=== PATIENT | male | born 1965 | race Caucasian/White ===

== ENCOUNTER 2016-09-09 08:42 | Day surgery (SDC) | payer BC ==
[2016-09-06 10:21] VITALS: BMI 27.5
[~2016-09-09 08:42] MED LIST: DEXAMETHASONE SOD PHOSPHATE 10 MG/ML 1 ML VIAL IV ONE; HEPARIN SODIUM,PORCINE 5,000 UNIT/ML 1 ML VIAL SQ ONE; HYDROmorphone 1 MG/ML 1 ML SYRINGE IVP PRN; LACTATED RINGERS 1,000 ML IV SCH; MIDAZOLAM 2 MG/2 ML VIAL IV PRN; ONDANSETRON 4 MG/2 ML VIAL IVP ONE; SCOPOLAMINE 1.5MG/72HR PATCH TRANSDERM ONE
[2016-09-09] MEDS ORDERED: LIDOCAINE 1% 20 ML VIAL (10MG/ML) FOR IV START INTRADERMA ONE (09:25)
[2016-09-09] MEDS ORDERED: BUPIVACAIN-EPI 0.5%-1:200,000 30 ML VIAL SQ ONE (10:40)
--- NOTE | 2016-09-09 10:42 | P.GSHP ---
History of Present Illness H&P Date: 09/09/16 Chief Complaint: Left arm skin lesion This a 51-year-old male who presents today for excision of a left arm skin lesion. Patient has a scaly nonhealing left forearm skin lesion. Lesions of present for several years. Past Medical History Past Medical History: No Reported History History of Any Multi-Drug Resistant Organisms: None Reported Past Surgical History: No Surgical Hx Reported Past Anesthesia/Blood Transfusion Reactions: No Reported Reaction Smoking Status: Current every day smoker - Past Family History Mother Family Medical History: No Reported History Medications and Allergies Home Medications Medication Instructions Recorded Confirmed Type No Known Home Medications [No 09/06/16 09/09/16 History Known Home Medications] Allergies Allergy/AdvReac Type Severity Reaction Status Date / Time No Known Allergies Allergy Verified 09/09/16 09:03 Surgical - Exam Vital Signs Temp Pulse Resp BP Pulse Ox 98.8 F 53 L 16 119/78 97 09/09/16 08:59 09/09/16 08:59 09/09/16 08:59 09/09/16 08:59 09/09/16 08:59 - General well developed, no distress - Eyes PERRL - Neck no masses - Respiratory normal expansion - Cardiovascular Rhythm: regular - Abdomen Abdomen: soft, non tender - Integumentary 8 cm scaly mildly erythematous skin lesion left forearm. Assessment and Plan Plan: Left forearm skin lesion. We'll perform excisional biopsy.
[2016-09-09] MEDS ORDERED: fentaNYL (PF) 50 MCG/ML 2 ML AMP ONE (10:59)
[2016-09-09] MEDS ORDERED: PROPOFOL 10 MG/ML 20 ML VIAL IV ONE (10:59)
[2016-09-09] MEDS ORDERED: MIDAZOLAM 2 MG/2 ML VIAL ONE (10:59)
[2016-09-09] MEDS ORDERED: LIDOCAINE 1% INJ 10MG/ML (20 ML MDV) ONE (10:59)
[2016-09-09] MEDS ORDERED: LACTATED RINGERS 1,000 ML IV ONE (11:34)
--- NOTE | 2016-09-09 11:38 | P.OP ---
Date of Procedure: 09/09/16 Preoperative Diagnosis: Left arm skin lesion Postoperative Diagnosis: Defer to pathology Procedure(s) Performed: Excision of left arm skin lesion Implants: Anesthesia: MAC Surgeon: Cosmo Heller Pathology: other (Left arm skin lesion) Condition: stable Disposition: PACU Indications for Procedure: Operative Findings: Description of Procedure: The patient's placed on the operating table in the supine position. He received general anesthesia. His left arm was prepped and draped usual fashion. Patient had a large left forearm skin lesion. An elliptical skin incision was made around the lesion. Lesion measuring probably 10 x 3 cm. Using left cautery and sharp dissection the patient was taken down level of the subcutaneous tissues. The Bovie was used to dissect through the subcutaneous tissues. The specimens of pathology. A suture was position on the specimen and this was tagged at the medial aspect of the lesion. The deep layer was then closed with 2-0 Vicryl suture. Skin closed interrupted 3-0 Monocryl suture. Dermabond was applied. Patient was sent to recovery in stable condition.
[2016-09-09 11:50] VITALS: TEMP 07
[2016-09-09 12:35] VITALS: PULSE 50; RESP 18
[2016-09-09 12:52] VITALS: BP 116/80
== END 2016-09-09 13:02 | disposition home or self-care (01) ==
LOC: OR 08:42
PROVIDERS: ATTEND Surgery
DX: L57.0 Actinic keratosis (principal); L57.8 Other skin changes due to chronic exposure to nonionizing radiation; F17.200 Nicotine dependence, unspecified, uncomplicated
CPT/HCPCS: 88305; 11406; 12034; J2250; J1644; J2405; J2001; J3010; J2704

== ENCOUNTER 2016-12-21 19:20 | Emergency (ER) | payer BC ==
[2016-12-21 19:30] VITALS: BP 193/85; PULSE 88; RESP 20; TEMP 98.2
--- NOTE | 2016-12-21 19:58 | ED ---
ENT HPI - General Chief complaint: Dental/Oral Stated complaint: dental pain Time Seen by Provider: 12/21/16 19:33 Source: patient Mode of arrival: ambulatory Limitations: no limitations - History of Present Illness Initial comments: 51-year-old male presents with left upper dental pain for the last few days. Patient states he's had a broken tooth there for quite a while but it never bothered him. Patient states that he felt hot and cold. Patient states he can' t bite down on it hurts too much. He denies any fevers but does state he feel swollen. No nausea no vomiting. Patient is staying up with the dentist later in the week. Denies any upper respiratory symptoms no headaches no drainage no sore throat. MD complaint: tooth pain Associated Symptoms: toothache (#1) - Related Data Previous Rx's Medication Instructions Recorded Acetaminophen-Codeine 300-30mg 1 tab PO Q6H PRN #20 tablet 12/21/16 [Tylenol #3] Penicillin V Potassium [Pen Vee K] 500 mg PO QID #28 tablet 12/21/16 Allergies Allergy/AdvReac Type Severity Reaction Status Date / Time No Known Allergies Allergy Verified 12/21/16 19:30 Review of Systems ROS Statement: Those systems with pertinent positive or pertinent negative responses have been documented in the HPI. ROS Other: All systems not noted in ROS Statement are negative. ENT: Reports: dental pain. Denies: ear pain, throat pain Respiratory: Denies: cough Cardiovascular: Denies: chest pain Endocrine: Denies: fatigue Gastrointestinal: Denies: nausea, vomiting Past Medical History Past Medical History: No Reported History History of Any Multi-Drug Resistant Organisms: None Reported Past Surgical History: No Surgical Hx Reported Past Anesthesia/Blood Transfusion Reactions: No Reported Reaction Past Psychological History: No Psychological Hx Reported Smoking Status: Current every day smoker Past Alcohol Use History: None Reported Past Drug Use History: None Reported - Past Family History Mother Family Medical History: No Reported History General Exam Limitations: no limitations General appearance: alert, in no apparent distress Head exam: Present: atraumatic, normocephalic, normal inspection Eye exam: Present: normal appearance, PERRL, EOMI. Absent: scleral icterus, conjunctival injection, periorbital swelling Pupils: Present: normal accommodation ENT exam: Present: normal exam, mucous membranes moist Expanded Teeth exam: Present: fractured tooth # (1), dental tenderness # (1) Neck exam: Present: normal inspection. Absent: tenderness, meningismus, lymphadenopathy Respiratory exam: Present: normal lung sounds bilaterally. Absent: respiratory distress, wheezes, rales, rhonchi, stridor Cardiovascular Exam: Present: regular rate, normal rhythm, normal heart sounds. Absent: systolic murmur, diastolic murmur, rubs, gallop, clicks Course Vital Signs 12/21/16 19:28 Temperature 98.2 F Pulse Rate 88 Respiratory 20 Rate Blood Pressure 193/85 O2 Sat by Pulse 98 Oximetry Medical Decision Making - Medical Decision Making Discussed with patient we'll place an antibiotic and medication for pain until seen his dental specialist. Patient will probably need tooth extracted or root canal on the near future. Patient on aware and understands plan and care. Disposition Clinical Impression: Fracture of tooth, Toothache Disposition: HOME SELF-CARE Instructions: Dental Caries (ED), Toothache (ED) Prescriptions: Acetaminophen-Codeine 300-30mg [Tylenol #3] 1 tab PO Q6H PRN #20 tablet PRN Reason: Pain Penicillin V Potassium [Pen Vee K] 500 mg PO QID #28 tablet Referrals: Rika Guerrero MD [Primary Care Provider] - 1-2 days Doug Leonard DDS [STAFF PHYSICIAN] - 1-2 days Time of Disposition: 19:58
== END 2016-12-21 20:19 | disposition home or self-care (01) ==
LOC: EC 19:20
DX: S02.5XXA Fracture of tooth (traumatic), initial encounter for closed fracture (principal); F17.200 Nicotine dependence, unspecified, uncomplicated
CPT/HCPCS: 99282

== ENCOUNTER → 2019-02-22 | Outpatient (CLI) | payer OTHER ==
--- NOTE | 2019-02-22 12:45 | ECHOF ---
Referral Reason:[id number] dizziness MEASUREMENTS -------- HEIGHT: 182.9 cm WEIGHT: 93.4 kg BP: RVIDd: 3.2 cm (< 3.3) IVSd: 1.0 cm (0.6 - 1.1) LVIDd: 4.2 cm (3.9 - 5.3) LVPWd: 1.2 cm (0.6 - 1.1) IVSs: 1.5 cm LVIDs: 1.9 cm LVPWs: 1.6 cm LAESV Index (A-L): 16.27 ml/m Ao Diam: 4.4 cm (2.0 - 3.7) AV Cusp: 2.5 cm (1.5 - 2.6) LA Diam: 3.3 cm (2.7 - 3.8) MV EXCURSION: 15.965 mm (> 18.000) MV EF SLOPE: 44 mm/s (70 - 150) EPSS: 0.3 cm MV E Xavier: 0.52 m/s MV DecT: 208 ms MV A Xavier: 0.68 m/s MV E/A Ratio: 0.76 RAP: 5.00 mmHg RVSP: 26.67 mmHg TAPSE: 21.17 mm FINDINGS -------- Sinus rhythm with extra systolic beats. This was a technically adequate study. The left ventricular size is normal. There is borderline concentric left ventricular hypertrophy. Overall left ventricular systolic function is normal with, an EF between 55 - 60 %. The diastolic filling pattern is normal for the age of the patient 9.99. The right ventricle is normal in size. The right ventricular systolic function is normal. Normal LA size by volume 22+/-6 ml/m2. The right atrial size is normal. The aortic valve is trileaflet, and appears structurally normal. No aortic stenosis or regurgitation. The mitral valve is normal. Mild mitral regurgitation is present. There is mild mitral valve prol apse. The tricuspid valve appears structurally normal. Mild tricuspid regurgitation present. Right vent ricular systolic pressure is normal at < 35 mmHg. There is no pulmonic regurgitation present. 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 Normal inferior vena cava with normal inspiratory collapse consistent with estimated right atrial pre ssure of 5 mmHg. There is no pericardial effusion. CONCLUSIONS -------- 1. Sinus rhythm with extra systolic beats. 2. This was a technically adequate study. 3. The left ventricular size is normal. 4. There is borderline concentric left ventricular hypertrophy. 5. Overall left ventricular systolic function is normal with, an EF between 55 - 60 %. 6. The diastolic filling pattern is normal for the age of the patient 9.99 7. The right ventricle is normal in size. 8. The right ventricular systolic function is normal. 9. Normal LA size by volume 22+/-6 ml/m2. 10. The aortic valve is trileaflet, and appears structurally normal. No aortic stenosis or regurgitat ion. 11. The mitral valve is normal. 12. Mild mitral regurgitation is present. 13. There is mild mitral valve prolapse. 14. The tricuspid valve appears structurally normal. 15. Mild tricuspid regurgitation present. 16. There is no pulmonic regurgitation present. 17. 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 Normal inferior vena cava with normal inspiratory collapse consistent with estimated right atrial pressure of 5 mmHg. 19. There is no pericardial effusion. HOME CARE ATTENDANT: Yu Carlton RDCS
== END | disposition home or self-care (01) ==
LOC: RADECHMAIN 11:12
PROVIDERS: ATTEND Family Medicine
DX: I08.1 Rheumatic disorders of both mitral and tricuspid valves (principal)
CPT/HCPCS: 93306

== ENCOUNTER → 2019-03-23 | Outpatient (CLI) | payer OTHER | END | disposition home or self-care (01) | LOC: RADECHMAIN 11:39 | PROVIDERS: ATTEND Family Medicine | DX: I49.1 Atrial premature depolarization (principal); I47.1 Supraventricular tachycardia; R94.31 Abnormal electrocardiogram [ECG] [EKG] | CPT/HCPCS: 93225; 93226 ==

== ENCOUNTER → 2019-04-15 | Outpatient (CLI) | payer OTHER ==
[2019-04-15 18:33] LABS: T4, Free (Free Thyroxine) 1.3 ng/dL (0.80-1.80)
== END | disposition home or self-care (01) ==
LOC: LABWHC1 14:37
PROVIDERS: ATTEND Nurse Practitioner
DX: R94.31 Abnormal electrocardiogram [ECG] [EKG] (principal)
CPT/HCPCS: 36415; 84439; 84443

== ENCOUNTER → 2019-08-10 | Outpatient (CLI) | payer OTHER ==
--- NOTE | 2019-08-10 13:55 | XR ---
EXAMINATION TYPE: XR shoulder complete RT DATE OF EXAM: 08/10/2019 CLINICAL HISTORY: Right shoulder pain and tightness with no known injury TECHNIQUE: Three views of the right shoulder are obtained. COMPARISON: None. FINDINGS: There is no acute fracture/dislocation evident in the right shoulder. The acromioclavicul ar and glenohumeral joint spaces appear aligned with mild acromioclavicular arthropathy demonstrated as small subchondral cysts and small marginal osteophytes The visualized ribs are intact and unremark able. IMPRESSION: There is no acute fracture or dislocation in the right shoulder. Mild acromioclavicular arthropathy.
--- NOTE | 2019-08-10 14:02 | XR ---
EXAMINATION TYPE: XR cervical spine w flex/ext DATE OF EXAM: 08/10/2019 TECHNIQUE: Frontal, lateral, oblique, swimmers, and open mouth view of the cervical spine are obtaine d. Flexion and extension lateral views of the cervical spine were also obtained. HISTORY: M54.2 Cervicalgia M54.10 Radiculopathy of arm COMPARISON: None FINDINGS: There is reversal of the usual cervical lordosis. There is very minimal retrolisthesis of C 4 on C5 in neutral and flexion that results in extension. Vertebral body heights of the cervical spin e are maintained from C2 through C6 with suboptimal evaluation of vertebral body height of the C5 lopez tebral body. Multilevel uncovertebral hypertrophy is seen creating mild neural foraminal narrowing on the left at C4-C5 and C5-C6 and on the right at C4-C5. Lung apices appear well aerated. IMPRESSION: 1. Reversal usual cervical lordosis with very minimal retrolisthesis of C4 on C5. This is seen in анна tral and flexion resolving on extension. 2. Mild degenerative disc disease of the cervical spine with neural foraminal narrowing radiographica lly at C4-C5 and C5-C6 on the left as well as C4-C5 on the right.
== END | disposition home or self-care (01) ==
LOC: RADXRMAIN 12:32
PROVIDERS: ATTEND Family Medicine
DX: M48.02 Spinal stenosis, cervical region (principal); M50.123 Cervical disc disorder at C6-C7 level with radiculopathy; M12.811 Other specific arthropathies, not elsewhere classified, right shoulder
CPT/HCPCS: 72052

== ENCOUNTER → 2019-08-17 | Outpatient (CLI) | payer OTHER | END | disposition home or self-care (01) | LOC: LABWHC1 13:53 | PROVIDERS: ATTEND Family Medicine | DX: Z20.828 Contact with and (suspected) exposure to other viral communicable diseases (principal) ==